=== PATIENT | female | born 1985 | race Caucasian/White ===

== ENCOUNTER 2017-06-16 15:12 | Emergency (ER) | payer OTHER ==
[~2017-06-16] VITALS: Ht 149.9 cm; Wt 65.3 kg
== END 2017-06-16 18:44 | disposition home or self-care (01) ==
LOC: ER 15:12
DX: M94.0 Chondrocostal junction syndrome [Tietze] (principal); M62.838 Other muscle spasm

== ENCOUNTER → 2017-06-18 | Emergency (ER) | payer OTHER ==
[~2017-06-18] VITALS: Ht 149.9 cm; Wt 65.3 kg
== END | disposition home or self-care (01) ==
LOC: ER 16:01
DX: K29.60 Other gastritis without bleeding (principal)